=== PATIENT | male | born 1955 ===

== ENCOUNTER 2016-08-05 08:28 | Emergency (ER) | payer OTHER ==
[~2016-08-05] VITALS: Ht 167.6 cm; Wt 88.5 kg
[2016-08-05 08:34] VITALS: BP 157/90
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
== END 2016-08-05 09:23 ==
LOC: ERH 08:28
DX: T24.402A Corrosion of unspecified degree of unspecified site of left lower limb, except ankle and foot, initial encounter (principal); T24.401A Corrosion of unspecified degree of unspecified site of right lower limb, except ankle and foot, initial encounter; X58.XXXA Exposure to other specified factors, initial encounter; Y92.9 Unspecified place or not applicable; Y93.9 Activity, unspecified